=== PATIENT | male | born 1985 | race African-American/Black ===

== ENCOUNTER 2017-05-08 22:34 | Emergency (ER) | payer BC ==
[2017-05-08 22:45] VITALS: BP 136/66
--- NOTE | 2017-05-08 22:53 | EDM.PDOC ---
ED HPI GENERAL MEDICAL PROBLEM - General Chief Complaint: Upper Extremity Injury/Pain Stated Complaint: PAIN IN RIGHT HAND Time Seen by Provider: 05/08/17 22:39 Source of Information: Reports: Patient History Limitations: Reports: No Limitations - History of Present Illness INITIAL COMMENTS - FREE TEXT/NARRATIVE: This is a 32-year-old male. He is noted over the last several months he's been having some pain in his right hand in the palm and he has a small lesion there. 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 He apparently was here some months ago for this same reason was referred to a doctor to remove this bump which appears to be a wart. He was not able see that physician and went overseas for a few months and now he is back working in the oil field and is beginning to bother him more. He denies any other acute symptoms. Right Hand Pain Score (Numeric/FACES): 8 - Related Data Allergies Allergy/AdvReac Type Severity Reaction Status Date / Time No Known Allergies Allergy Verified 05/08/17 22:41 Home Meds: Home Meds . [No Known Home Meds] 05/08/17 [History] Past Medical History - Past Health History Medical/Surgical History: Denies Medical/Surgical History HEENT History: Reports: Impaired Vision Other HEENT History: glasses Respiratory History: Reports: Sleep Apnea Genitourinary History: Reports: STD Musculoskeletal History: Reports: Arthritis, Fracture - Past Surgical History HEENT Surgical History: Reports: Adenoidectomy, Tonsillectomy Social & Family History - Family History Family Medical History: Noncontributory - Tobacco Use Smoking Status *Q: Current Some Day Smoker Years of Tobacco use: 1 Packs/Tins Daily: 0.1 - Caffeine Use Caffeine Use: Reports: None - Alcohol Use Days Per Week of Alcohol Use: 2 Number of Drinks Per Day: 5 Total Drinks Per Week: 10 - Recreational Drug Use Recreational Drug Use: No Recreational Drug Type: Reports: Marijuana/Hashish Review of Systems - Review of Systems Review Of Systems: See Below Constitutional: Denies: Chills, Fever Eyes: Reports: No Symptoms Ears: Reports: No Symptoms Nose: Reports: No Symptoms, Previous Injury Mouth/Throat: Reports: No Symptoms Respiratory: Reports: No Symptoms Cardiovascular: Reports: No Symptoms GI/Abdominal: Reports: No Symptoms Genitourinary: Reports: No Symptoms Musculoskeletal: Reports: No Symptoms Skin: Reports: Other (As per history of present illness) Neurological: Reports: No Symptoms Psychiatric: Reports: No Symptoms ED EXAM, GENERAL - Physical Exam Exam: See Below Exam Limited By: No Limitations General Appearance: Alert, WD/WN, No Apparent Distress Eye Exam: Bilateral Eye: Normal Inspection Ears: Normal External Exam Nose: Normal Inspection Throat/Mouth: Normal Inspection Head: Normocephalic Neck: Supple Respiratory/Chest: No Respiratory Distress Back Exam: Full Range of Motion Extremities: Normal Inspection, Normal Range of Motion, Other (In the right hand palm over the distal fifth metacarpal there is a lesion there in the crease of this hand that appears to be a wart, there is no secondary infection there is no inflammation but there is a callous beginning in that area where the wart is) Neurological: Alert, Oriented Psychiatric: Normal Affect, Normal Mood Skin Exam: Warm, Dry Course - Vital Signs Last Recorded V/S: Last Vital Signs Temp 98.5 F 05/08/17 22:42 Pulse 78 05/08/17 22:42 Resp 18 05/08/17 22:42 BP 136/66 05/08/17 22:42 Pulse Ox 100 05/08/17 22:42 - Re-Assessments/Exams Free Text/Narrative Re-Assessment/Exam: 05/08/17 22:51 Refer the patient to [facility] physician for evaluation and removal of the wart. Departure - Departure Time of Disposition: 22:51 Disposition: Home, Self-Care 01 Condition: Good Clinical Impression: Wart Qualifiers: Viral wart type: unspecified viral wart Qualified Code(s): B07.9 - Viral wart, unspecified - Discharge Information Referrals: Jonh Lorenzo [Physician] - Forms: ED Department Discharge, ED Return to Work/School Form Additional Instructions: We will work make sure you're gloves have enough padding, follow-up with Dr. Lorenzo for evaluation of the wart and removal of the wart in your right palm, return to the ER if needed
== END 2017-05-08 23:07 | disposition home or self-care (01) ==
LOC: JD.ED 22:34
DX: B07.9 Viral wart, unspecified (principal); F17.210 Nicotine dependence, cigarettes, uncomplicated
CPT/HCPCS: 99282; 99283

== ENCOUNTER 2018-10-05 17:23 | Emergency (ER) | payer SELFPAY ==
[2018-10-05 17:33] VITALS: BP 133/67
--- NOTE | 2018-10-05 19:09 | EDM.PDOC ---
ED HPI GENERAL MEDICAL PROBLEM - General Chief Complaint: ENT Problem Stated Complaint: RIGHT EAR COMPLAINT Time Seen by Provider: 10/05/18 17:31 Source of Information: Reports: Patient History Limitations: Reports: No Limitations - History of Present Illness INITIAL COMMENTS - FREE TEXT/NARRATIVE: 33 yo M comes in for R ear "fullness" and difficulty hearing after flying in an airplane 5 days ago. He stated the problem started on the descent when his left ear popped and his right ear did not. He has never had anything like this before. He denies having any sick symptoms or congestion before the flight and denies any seasonal or environmental allergies. It has since been getting worse. He hasn't tried anything at home for relief. He also c/o hoarse voice x 8 months and "smoker's cough" (chronic). He also admits that he was snorting cocaine "intensely" x3 months and has had "nasal issues". He denies smoking tobacco, but does smoke marijuana 1-2x per day x4 months. No other significant past medical history. No other complaints at this time. He did not have his flu shot. No PCP. He is originally from [place]. - Related Data Allergies Allergy/AdvReac Type Severity Reaction Status Date / Time No Known Allergies Allergy Verified 04/23/18 12:08 Home Meds: Home Meds Indomethacin 50 mg PO BID PRN #20 capsule 04/23/18 [Rx] Amoxicillin/Potassium Clav [Augmentin 875-125 Tablet] 1 each PO BID 7 Days #14 tablet 10/05/18 [Rx] Colchicine [Mitigare] 0.6 mg PO BID PRN 10/05/18 [History] Loratadine/Pseudoephedrine [Claritin-D 12 Hour] 1 tab PO DAILY #20 tab.er [Rx] Past Medical History - Past Health History Medical/Surgical History: Denies Medical/Surgical History HEENT History: Reports: Impaired Vision Other HEENT History: glasses Respiratory History: Reports: Sleep Apnea Genitourinary History: Reports: STD Musculoskeletal History: Reports: Arthritis, Fracture, Gout - Past Surgical History HEENT Surgical History: Reports: Adenoidectomy, Tonsillectomy Social & Family History - Family History Family Medical History: Noncontributory - Tobacco Use Smoking Status *Q: Current Every Day Smoker Years of Tobacco use: 5 Packs/Tins Daily: 0.2 - Caffeine Use Caffeine Use: Reports: Soda - Recreational Drug Use Recreational Drug Use: Yes Drug Use in Last 12 Months: Yes Recreational Drug Type: Reports: Marijuana/Hashish Recreational Drug Use Frequency: Rarely ED ROS ENT - Review of Systems Review Of Systems: See Below Constitutional: Reports: No Symptoms. Denies: Fever, Chills HEENT: Reports: Throat Pain. Denies: Ear Discharge, Ear Pain Respiratory: Reports: Cough (chronic). Denies: Shortness of Breath Cardiovascular: Reports: No Symptoms. Denies: Chest Pain Endocrine: Reports: No Symptoms GI/Abdominal: Reports: No Symptoms. Denies: Abdominal Pain, Diarrhea, Nausea, Vomiting : Reports: No Symptoms Musculoskeletal: Reports: No Symptoms Skin: Reports: No Symptoms Neurological: Reports: No Symptoms. Denies: Dizziness, Headache Psychiatric: Reports: No Symptoms Hematologic/Lymphatic: Reports: No Symptoms Immunologic: Reports: No Symptoms ED EXAM, ENT - Physical Exam Exam: See Below Exam Limited By: No Limitations General Appearance: Alert, WD/WN, No Apparent Distress Eye Exam: Bilateral Eye: EOMI, Normal Inspection, PERRL Ears: Normal External Exam, TM Bulging (R ), TM Erythema (R), TM Fluid (R). No : Normal Canal (erythematous), Auricular Tenderness Nose: Normal Inspection, Normal Mucousa, No Blood Mouth/Throat: Normal Gums, Normal Lips, Normal Teeth, Pharyngeal Erythema, Throat Pain. No: Throat Swelling Head: Atraumatic, Normocephalic Neck: Normal Inspection, Supple, Non-Tender, Full Range of Motion Respiratory/Chest: No Respiratory Distress, Lungs Clear, Normal Breath Sounds, No Accessory Muscle Use, Chest Non-Tender Cardiovascular: Normal Peripheral Pulses, Regular Rate, Rhythm, No Edema, No Gallop, No JVD, No Murmur, No Rub Psychiatric: Normal Affect, Normal Mood Skin: Warm, Dry, Intact, Normal Color, No Rash Course - Vital Signs Last Recorded V/S: Last Vital Signs Temp 98.4 F 10/05/18 17:28 Pulse 59 L 10/05/18 17:28 Resp 13 10/05/18 17:28 BP 133/67 10/05/18 17:28 Pulse Ox 99 10/05/18 17:28 - Orders/Labs/Meds Orders: Active Orders 24 hr Category Date Time Status INFLUENZA A+B AG SCREEN [RM] Stat Lab 10/05/18 18:30 Ordered STREP PNEUMONIAE ANTIGEN [MREF] Routine Lab 10/05/18 18:30 Ordered - Re-Assessments/Exams Free Text/Narrative Re-Assessment/Exam: 10/05/18 18:30 Ordered flu and strep screen. 10/05/18 19:15 Flu and strep negative. At this time, he likely has congestion and right ear infection. Will send home with Augmentin 875-125 BID x5-7 days and recommend Claritin D 12h once daily. Departure - Departure Time of Disposition: 19:17 Disposition: Home, Self-Care 01 Condition: Good Clinical Impression: Otitis media - Discharge Information *PRESCRIPTION DRUG MONITORING PROGRAM REVIEWED*: Not Applicable *COPY OF PRESCRIPTION DRUG MONITORING REPORT IN PATIENT MARTÍN: Not Applicable Prescriptions: Amoxicillin/Potassium Clav [Augmentin 875-125 Tablet] 1 each PO BID 7 Days #14 tablet Loratadine/Pseudoephedrine [Claritin-D 12 Hour] 1 tab PO DAILY #20 tab.er Instructions: Otitis Media, Adult, [id number] Referrals: PCP,Not In Area [Primary Care Provider] - Additional Instructions: You were seen in the ED today for R ear fullness and decreased hearing. Your influenza and strep screen were negative. Your physical exam showed that you likely have a right ear infection. You will be prescribed Amoxicillin twice per day for 7 days for treatment. You likely also have congestion and would benefit from taking Claritin D once per day to help with decongestion. You also had complaints of hoarse voice for 8 months. You will need to follow up with an Ear , Nose, Throat (ENT) doctor for this problem. You can make an appointment with ENT Dr. Duque in [place] by calling . Also recommend you follow up with a primary care physician. Also recommend avoiding riding in airplanes until your ear has healed. Please return to ED if new or worsening symptoms. - My Orders Last 24 Hours: My Active Orders 10/05/18 18:30 INFLUENZA A+B AG SCREEN [RM] Stat STREP PNEUMONIAE ANTIGEN [MREF] Routine - Assessment/Plan Last 24 Hours: My Active Orders 10/05/18 18:30 INFLUENZA A+B AG SCREEN [RM] Stat STREP PNEUMONIAE ANTIGEN [MREF] Routine
== END 2018-10-05 19:32 | disposition home or self-care (01) ==
LOC: JD.ED 17:23
DX: H66.91 Otitis media, unspecified, right ear (principal); F17.210 Nicotine dependence, cigarettes, uncomplicated; Z79.899 Other long term (current) drug therapy
CPT/HCPCS: 87081; 87430; 87804; 99283

== ENCOUNTER 2019-07-19 11:54 | Emergency (ER) | payer SELFPAY ==
--- NOTE | 2019-07-19 12:21 | EDM.PDOC ---
<Maco Molina Tami - Last Filed: 07/19/19 12:46> ED HPI GENERAL MEDICAL PROBLEM - General Chief Complaint: Chest Pain Stated Complaint: CHEST PAIN AND SOB Time Seen by Provider: 07/19/19 12:02 Chest Pain Score (Numeric/FACES): 8 - Related Data Allergies Allergy/AdvReac Type Severity Reaction Status Date / Time No Known Allergies Allergy Verified 07/19/19 12:02 Home Meds: Home Meds Indomethacin 50 mg PO BID PRN #20 capsule 04/23/18 [Rx] Omeprazole 40 mg PO DAILY #30 capsule. 07/19/19 [Rx] Ranitidine HCl [Ranitidine] 150 mg PO DAILY 07/19/19 [History] Past Medical History - Past Health History Medical/Surgical History: Denies Medical/Surgical History HEENT History: Reports: Impaired Vision Other HEENT History: glasses Respiratory History: Reports: Sleep Apnea Genitourinary History: Reports: STD Musculoskeletal History: Reports: Arthritis, Fracture, Gout - Past Surgical History HEENT Surgical History: Reports: Adenoidectomy Social & Family History - Family History Family Medical History: Noncontributory - Tobacco Use Smoking Status *Q: Never Smoker - Caffeine Use Caffeine Use: Reports: None - Recreational Drug Use Recreational Drug Use: Yes Drug Use in Last 12 Months: Yes Recreational Drug Type: Reports: Marijuana/Hashish EKG INTERPRETATION EKG Date: 07/19/19 Rhythm: NSR [place]: Normal P-Wave: Present QRS: Normal ST-T: Normal QT: Normal Course - Vital Signs Last Recorded V/S: Last Vital Signs Temp 97.1 F 07/19/19 11:58 Pulse 71 07/19/19 11:58 Resp 22 H 07/19/19 11:58 BP 153/92 H 07/19/19 11:58 Pulse Ox 100 07/19/19 11:58 - Orders/Labs/Meds Orders: Active Orders 24 hr Category Date Time Status EKG Documentation Completion [RC] ASDIRECTED Care 07/19/19 12:30 Active EKG 12 Lead [EK] Stat Ther 07/19/19 12:00 Ordered - Re-Assessments/Exams Free Text/Narrative Re-Assessment/Exam: 07/19/19 12:20 Initial hx and exam was done by Becky Hameed PA student. I agree with her hx and exam as documented. I have also interviewed and examined patient. 07/19/19 12:46 07/19/19 12:46. Pt has hx of GERD and sx of GERD with intermitent esophogeal spasm, will start him on omeprazole 20 mg bid. EKG is nl. youth nutritional monitor normal sinus rhythm, no ectopy. Departure - Departure Time of Disposition: 12:48 Disposition: Home, Self-Care 01 Condition: Fair Clinical Impression: GERD (gastroesophageal reflux disease) Qualifiers: Esophagitis presence: without esophagitis Qualified Code(s): K21.9 - Gastro- esophageal reflux disease without esophagitis Prescriptions: Omeprazole 40 mg PO DAILY #30 capsule.dr Referrals: PCP,None [Primary Care Provider] - Forms: ED Department Discharge Additional Instructions: Avoid spicy foods or any other irritating foods for now. Omeprazole 40 mg once daily as discussed. Prescription has been sent electronically to [facility], [address]. You may also drink liquid antacid such as Maalox 2 tablespoons up to 3-4 times daily if needed for further discomfort or episodes of discomfort. Follow-up with your medical provider here in [place] in about 2 weeks for recheck. If symptoms continue or don't get better endoscopy, a way of looking at your stomach with a scope may be indicated. Sepsis Event Note - Evaluation Sepsis Screening Result: No Definite Risk - Focused Exam Vital Signs: Vital Signs Temp Pulse Resp BP Pulse Ox 07/19/19 11:58 97.1 F 71 22 H 153/92 H 100 Date Exam was Performed: 07/19/19 Time Exam was Performed: 12:46 <Dawna Liz - Last Filed: 07/19/19 13:24> ED HPI GENERAL MEDICAL PROBLEM - General Source of Information: Reports: Patient History Limitations: Reports: No Limitations - History of Present Illness INITIAL COMMENTS - FREE TEXT/NARRATIVE: 34-year-old male presents with intermittent chest pain for the past few months. He describes the pain as stabbing, like "fingers poking" him in multiple areas of his chest. He states that the pain jumps between multiple locations on his chest and upper abdomen. The pain seems to improve when he takes deep breaths, and occasionally worsens with food intake. He denies SOB, palpitations, headache , and dyspnea on exertion. He also denies changes to his stool and urination, vomiting, and nausea. The patient has a recent history of GERD for which he is being treated with ranitidine, stating he has tried his mother's greater strength ranitidine as well. 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 He does smoke marijuana daily. While on a recent vacation, he forgot his ranitidine and symptoms worsened. He has tried drinking baking soda for relief. The patient is currently in no acute distress. Duration: Intermittent Location: Reports: Chest Quality: Reports: Stabbing (alternates location throughout chest) Improves with: Reports: Other (deep breathing ) Worsens with: Reports: Eating (occasionally ) Associated Symptoms: Reports: Chest Pain. Denies: Cough, Diaphoresis, Fever/ Chills, Headaches, Loss of Appetite, Nausea/Vomiting, Syncope Past Medical History - Past Surgical History GI Surgical History: Reports: Hernia Repair/Other Social & Family History - Recreational Drug Use Recreational Drug Use Frequency: Daily ("one blunt daily") ED ROS GENERAL - Review of Systems Review Of Systems: See Below Constitutional: Reports: Weight Gain. Denies: Fever, Diaphoresis, Decreased Appetite HEENT: Reports: No Symptoms Respiratory: Reports: No Symptoms Cardiovascular: Reports: Chest Pain. Denies: Dyspnea on Exertion, Lightheadedness, Palpitations, Syncope Endocrine: Reports: No Symptoms GI/Abdominal: Reports: Other (acid reflux). Denies: Abdominal Pain, Constipation, Diarrhea, Decreased Appetite, Difficulty Swallowing, Nausea, Vomiting : Reports: No Symptoms Musculoskeletal: Reports: No Symptoms Skin: Reports: No Symptoms Neurological: Reports: No Symptoms Psychiatric: Reports: No Symptoms Hematologic/Lymphatic: Reports: No Symptoms Immunologic: Reports: No Symptoms ED EXAM, GENERAL - Physical Exam Exam: See Below Exam Limited By: No Limitations General Appearance: Alert, WD/WN, No Apparent Distress Throat/Mouth: Normal Inspection, Normal Oropharynx, Normal Voice, No Airway Compromise Head: Atraumatic, Normocephalic Neck: Normal Inspection, Supple, Non-Tender, Full Range of Motion Respiratory/Chest: No Respiratory Distress, Lungs Clear, Normal Breath Sounds, No Accessory Muscle Use, Chest Non-Tender Cardiovascular: Normal Peripheral Pulses, Regular Rate, Rhythm, No Murmur GI/Abdominal: Normal Bowel Sounds, Soft, No Organomegaly, No Distention, Tender (mild in RLQ). No: Guarding, Rigid Neurological: Alert, Oriented, Normal Cognition Psychiatric: Normal Affect, Normal Mood Skin Exam: Warm, Dry, Intact, Normal Color, No Rash Lymphatic: No Adenopathy Course - Orders/Labs/Meds Orders: Active Orders 24 hr Category Date Time Status EKG Documentation Completion [RC] ASDIRECTED Care 07/19/19 12:30 Active EKG 12 Lead [EK] Stat Ther 07/19/19 12:00 Ordered Sepsis Event Note - Focused Exam Date Exam was Performed: 07/19/19 Time Exam was Performed: 12:55
[2019-07-19 13:07] VITALS: BP 138/95; PULSE 69
== END 2019-07-19 13:02 | disposition home or self-care (01) ==
LOC: JD.ED 11:54
DX: K21.9 Gastro-esophageal reflux disease without esophagitis (principal); Z98.890 Other specified postprocedural states
CPT/HCPCS: 93005; 99284-25

== ENCOUNTER 2019-09-29 03:18 | Emergency (ER) | payer OTHER ==
[2019-09-29 03:33] VITALS: BP 126/82; PULSE 74
--- NOTE | 2019-09-29 03:45 | EDM.PDOC ---
ED HPI GENERAL MEDICAL PROBLEM - General Chief Complaint: Respiratory Problem Stated Complaint: SOB Time Seen by Provider: 09/29/19 03:34 - History of Present Illness INITIAL COMMENTS - FREE TEXT/NARRATIVE: 34-year-old male presents the emergency room with fever cough and generally not feeling well. This started about a week ago he has had fevers and chills. He has had a productive cough at times bringing up some blood-streaked sputum the sputum is otherwise mostly clear. He is achy all over. He said no nausea or vomiting or abdominal pain. Interestingly he has had right testicular pain that started last Wednesday, now present for a week. This testicular pain seems to come and go and is aggravated by change in position. He has noticed some swelling in this area. Patient denies any other complaints at this time - Related Data Allergies Allergy/AdvReac Type Severity Reaction Status Date / Time No Known Allergies Allergy Verified 09/29/19 03:33 Home Meds: Home Meds Indomethacin 50 mg PO BID PRN #20 capsule 04/23/18 [Rx] Omeprazole 40 mg PO DAILY #30 capsule. 07/19/19 [Rx] Ranitidine HCl [Ranitidine] 150 mg PO DAILY 07/19/19 [History] Doxycycline Hyclate 100 mg PO Q12H #13 capsule 09/29/19 [Rx] Past Medical History - Past Health History Medical/Surgical History: Denies Medical/Surgical History HEENT History: Reports: Impaired Vision Other HEENT History: glasses Respiratory History: Reports: Sleep Apnea Genitourinary History: Reports: STD Musculoskeletal History: Reports: Arthritis, Fracture, Gout - Past Surgical History HEENT Surgical History: Reports: Adenoidectomy Social & Family History - Family History Family Medical History: Noncontributory - Caffeine Use Caffeine Use: Reports: None ED ROS GENERAL - Review of Systems Review Of Systems: See Below Constitutional: Reports: Fever, Chills. Denies: No Symptoms HEENT: Reports: No Symptoms Respiratory: Reports: Shortness of Breath, Cough, Sputum Cardiovascular: Reports: No Symptoms GI/Abdominal: Reports: No Symptoms : Reports: Other (Right-sided testicular pain). Denies: No Symptoms, Discharge, Dysuria, Flank Pain, Frequency Musculoskeletal: Reports: Other (Achy all over at times) Skin: Reports: No Symptoms Neurological: Reports: No Symptoms ED EXAM, GENERAL - Physical Exam Exam: See Below Exam Limited By: No Limitations General Appearance: Alert, No Apparent Distress Eye Exam: Bilateral Eye: Normal Inspection Ears: Normal External Exam, Normal Canal, Hearing Grossly Normal, Normal TMs Nose: Normal Inspection, Normal Mucosa, No Blood Throat/Mouth: Normal Inspection, Normal Lips, Normal Oropharynx, Normal Voice, No Airway Compromise, Other (Very poor dentition). No: Normal Teeth Head: Atraumatic, Normocephalic Neck: Normal Inspection, Supple, Non-Tender, Full Range of Motion. No: Lymphadenopathy (L), Lymphadenopathy (R) Respiratory/Chest: No Respiratory Distress, Lungs Clear, Normal Breath Sounds Cardiovascular: Regular Rate, Rhythm, No Edema, No Murmur GI/Abdominal: Normal Bowel Sounds, Soft, Non-Tender (Male) Exam: Scrotum Tenderness (R), Testicular Tenderness (R) (He has some swelling and here this is most consistent with a hydrocele). No: Scrotum Tenderness (L), Urethral Discharge Back Exam: Normal Inspection. No: CVA Tenderness (L), CVA Tenderness (R) Extremities: Normal Inspection, No Pedal Edema Neurological: Alert, Oriented, Normal Cognition Course - Vital Signs Last Recorded V/S: Last Vital Signs Temp 36.7 C 09/29/19 03:28 Pulse 74 09/29/19 03:28 Resp 20 09/29/19 03:28 BP 126/82 09/29/19 03:28 Pulse Ox 95 09/29/19 03:28 - Orders/Labs/Meds Orders: Active Orders 24 hr Category Date Time Status Chest 1V Frontal [CR] Stat Exams 09/29/19 03:52 Taken CORONAVIRUS COVID-19 PCR PHL [MREF] Stat Lab 09/29/19 04:15 Received Meds: Medications Discontinued Medications Generic Name Dose Route Start Last Admin Trade Name Freq PRN Reason Stop Dose Admin Doxycycline Hyclate 100 mg 09/29/19 05:03 Vibramycin PO 09/29/19 05:04 ONETIME ONE - Re-Assessments/Exams Free Text/Narrative Re-Assessment/Exam: 09/29/19 05:06 Chest x-ray was consistent with bilateral pneumonia is got patchy infiltrates mostly in the bases right upper lobe area noted as well. This could well be viral. Coronavirus testing pending. Patient be started on doxycycline 100 mg twice daily this first dose was given here in the emergency room. Had a long discussion about his testicular pain I believe this is a hydrocele in the highly unlikely event that is torsion this far out the testicle is gone anyway patient understands he needs to follow-up very closely with us to make sure it does get better. He will use tight fitting underwear probably should avoid nonsteroidals at this point as he may have covid 19. Departure - Departure Time of Disposition: 05:10 Disposition: Home, Self-Care 01 Clinical Impression: Hydrocele of testis, Viral syndrome, Pneumonia - Discharge Information Prescriptions: Doxycycline Hyclate 100 mg PO Q12H #13 capsule Referrals: PCP,None [Primary Care Provider] - Forms: ED Department Discharge Additional Instructions: Return to the emergency room with any questions problems or worsening symptoms. Establish with a local provider and follow-up after you are feeling better probably in a week or so. Have this testicular discomfort followed up on. Take the antibiotics as directed. Your first dose was given here in the emergency room take the next dose this evening. Tylenol as needed for discomfort. Sepsis Event Note - Evaluation Sepsis Screening Result: No Definite Risk - Focused Exam Vital Signs: Vital Signs Temp Pulse Resp BP Pulse Ox 09/29/19 03:28 36.7 C 74 20 126/82 95 Date Exam was Performed: 09/29/19 Time Exam was Performed: 05:05 - My Orders Last 24 Hours: My Active Orders 09/29/19 03:52 Chest 1V Frontal [CR] Stat 09/29/19 04:15 CORONAVIRUS COVID-19 PCR PHL [MREF] Stat - Assessment/Plan Last 24 Hours: My Active Orders 09/29/19 03:52 Chest 1V Frontal [CR] Stat 09/29/19 04:15 CORONAVIRUS COVID-19 PCR PHL [MREF] Stat
[2019-09-29] MEDS ORDERED: Doxycycline 100 MG Cap PO ONE (05:03)
--- NOTE | 2019-09-29 06:59 | CR ---
Chest: Portable view of the chest was obtained. Comparison: No previous chest imaging is available. Findings: Patchy areas of increased density seen on both sides of the chest. Findings most likely represent mild multifocal pneumonia. Lungs otherwise are clear. Heart size and mediastinum are normal. Bony structures are unremarkable. Impression: 1. Patchy areas of increased density within both sides of the chest suggesting the possible mild multifocal pneumonia. Diagnostic code #3 This report was dictated in MDT I agree with preliminary report from [facility], finalized on 09/29/19, 5:33 AM Central Time
== END 2019-09-29 05:30 | disposition home or self-care (01) ==
LOC: JD.ED 03:18
DX: B97.29 Other coronavirus as the cause of diseases classified elsewhere (principal); J18.9 Pneumonia, unspecified organism; N43.3 Hydrocele, unspecified; H54.7 Unspecified visual loss; G47.30 Sleep apnea, unspecified; M19.90 Unspecified osteoarthritis, unspecified site; M10.9 Gout, unspecified; Z79.899 Other long term (current) drug therapy
CPT/HCPCS: 71045; 87635; 99284; A9270; 99283; U0001; U0002

== ENCOUNTER 2020-01-21 11:26 | Emergency (ER) | payer OTHER ==
[2020-01-21 11:39] VITALS: BP 150/91; PULSE 58
--- NOTE | 2020-01-21 11:59 | EDM.PDOC ---
ED HPI GENERAL MEDICAL PROBLEM - General Chief Complaint: Lower Extremity Injury/Pain Stated Complaint: GOUT FLARE ON LEFT TOE Time Seen by Provider: 01/21/20 11:45 Source of Information: Reports: Patient History Limitations: Reports: No Limitations - History of Present Illness INITIAL COMMENTS - FREE TEXT/NARRATIVE: 34-year-old male presents to the ED with painful swollen left first MCP joint. Patient states he has had gout many times in both MCP joints of his feet and occasionally in his knees. He believes he is on allopurinol 100 mg a day but feels it is not strong enough as he continues to have breakthrough gout attacks in spite of being on on allopurinol. Current attack started about 3 days ago with mild pain. He had some indomethacin which brought it mildly under control but he ran out of the medication. It really flared up overnight to the point that he could barely walk this morning and certainly cannot put a shoe on. Not had his uric acid tested in his blood recently. Onset: Gradual Onset Date: 01/19/20 Duration: Day(s):, Getting Worse Location: Reports: Lower Extremity, Left Quality: Reports: Ache (Left great toe first MCP joint.), Burning, Sharp, Stabbing Severity: Severe Improves with: Reports: Rest Worsens with: Reports: Other Context: Reports: Other (Spontaneous occurrence. He indicates that he did eat seafood at [employer] about 3 days ago.). Denies: Activity, Exercise (Any attempt to walk or touching the toe causes marked increase in pain.), Lifting, Sick Contact, Trauma Associated Symptoms: Reports: No Other Symptoms Treatments DIE MOUNTER: Reports: Other (see below) (Indomethacin tablets that he had leftover from last gout attack.) - Related Data Allergies Allergy/AdvReac Type Severity Reaction Status Date / Time No Known Allergies Allergy Verified 09/29/19 03:33 Home Meds: Home Meds Omeprazole 40 mg PO DAILY #30 capsule. 07/19/19 [Rx] Indomethacin 50 mg PO Q6H #20 capsule 01/21/20 [Rx] oxyCODONE HCl/Acetaminophen [Percocet 5-325 mg Tablet] 1 - 2 each PO Q4H PRN #12 tablet 01/21/20 [Rx] predniSONE [Prednisone] 20 mg PO BID #12 tablet 01/21/20 [Rx] Past Medical History - Past Health History Medical/Surgical History: Denies Medical/Surgical History HEENT History: Reports: Impaired Vision Other HEENT History: glasses Respiratory History: Reports: Sleep Apnea Gastrointestinal History: Reports: GERD (Omeprazole daily.) Genitourinary History: Reports: STD Musculoskeletal History: Reports: Arthritis, Fracture, Gout - Past Surgical History HEENT Surgical History: Reports: Adenoidectomy GI Surgical History: Reports: Hernia Repair/Other Social & Family History - Family History Family Medical History: Noncontributory - Tobacco Use Smoking Status *Q: Never Smoker - Caffeine Use Caffeine Use: Reports: None - Living Situation & Occupation Living situation: Reports: Single Occupation: Unemployed Review of Systems - Review of Systems Review Of Systems: See Below Constitutional: Reports: No Symptoms Eyes: Reports: No Symptoms Ears: Reports: No Symptoms Nose: Reports: No Symptoms Mouth/Throat: Reports: No Symptoms Respiratory: Reports: No Symptoms Cardiovascular: Reports: No Symptoms GI/Abdominal: Reports: No Symptoms Genitourinary: Reports: No Symptoms Musculoskeletal: Reports: Other Skin: Reports: No Symptoms (Tremendous pain in the left foot first MCP joint.) Neurological: Reports: No Symptoms Psychiatric: Reports: No Symptoms ED EXAM, GENERAL - Physical Exam Exam: See Below Exam Limited By: No Limitations General Appearance: Alert, WD/WN, Mild Distress, Other (Temperature is 36.2. Heart rate is 58 and sinus. Respiratory to 16 with O2 sats of 98% on room air. BP mildly elevated 150/91.) Eye Exam: Bilateral Eye: Normal Inspection, PERRL Extremities: Other (Examination of his left foot in particular the first MCP joint reveals it to be markedly swollen and very tender to palpation. It is warm to touch not markedly erythematous. Examination is compatible with acute gout attack.) Neurological: Alert, Oriented, CN II-XII Intact, Normal Cognition. No: Normal Gait (Emptying gait.) Course - Vital Signs Last Recorded V/S: Last Vital Signs Temp 36.2 C 01/21/20 11:36 Pulse 58 L 01/21/20 11:36 Resp 16 01/21/20 11:36 BP 150/91 H 01/21/20 11:36 Pulse Ox 98 01/21/20 11:36 - Radiology Interpretation Free Text/Narrative:: 34-year-old male presents to the ED with an acute gout attack involving the first MCP joint of his left great toe. Patient states he has had gout many times in the past involving both great toes and in his knees. He is currently on allopurinol he believes the dose is 100 mg a day and believes that in spite of taking this medication daily his still getting frequent gout attacks. Plan he will be treated with prednisone 20 mg twice daily for the next 5 days. Indomethacin 50 mg every 6 hours as needed for the next 5 days to relieve pain and inflammation. Percocet tabs 5/325 mg 1 or 2 every 4-6 hours needed for pain relief x12 tablets provided. I increased his allopurinol to 300 mg daily which he is not to start until the gout attack is completely resolved for 2 days. He is advised to follow-up with his 5 primary care provider a month after starting the allopurinol to check on renal function and his uric acid levels. He can still get a few gout attacks over the next 6 months even in spite of the increased dose of allopurinol dosage. Some patients will require up to 600 mg of allopurinol daily to achieve a uric acid less than 6. Is advisable to prevent interstitial nephritis due to uric acid crystal deposition. Departure - Departure Time of Disposition: 11:51 Disposition: Home, Self-Care 01 Condition: Fair Clinical Impression: Gout attack Qualifiers: Gout site: toe Gout etiology: idiopathic Laterality: left Qualified Code(s): M10.072 - Idiopathic gout, left ankle and foot - Discharge Information *PRESCRIPTION DRUG MONITORING PROGRAM REVIEWED*: Not Applicable *COPY OF PRESCRIPTION DRUG MONITORING REPORT IN PATIENT MARTÍN: Not Applicable Prescriptions: Indomethacin 50 mg PO Q6H #20 capsule oxyCODONE HCl/Acetaminophen [Percocet 5-325 mg Tablet] 1 - 2 each PO Q4H PRN #12 tablet PRN Reason: pain relief. 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 As you indicate you have had this on multiple occasions in the past. In spite of being on allopurinol you are still continued to have breakthrough gout attacks. This suggest that your allopurinol dose is not high enough to control the amount of uric acid being formed in your body. Treatment today will be prednisone 20 mg twice daily for the next 6 days with indomethacin 50 mg every 6 hours with food for the next 5 days to reduce pain and inflammation and reduce the gout attack. May also use Percocet tabs 5/325 mg 1 or 2 every 4-6 hours for pain relief for the next day or 2 till the anti- inflammatories become effective. He should not operate a motor vehicle if you are taking the narcotic pain medication. I have written a prescription for allopurinol 300 mg once daily and you should start taking this in about 10 days time when your current gout attack is completely pain-free or gone. Check with your family physician or personal care physician in a month's time to check on kidney function from the increased dose of allopurinol. Some patients will require as much is 600 mg of allopurinol daily to control uric acid levels. The uric acid can be measured in your bloodstream and the effect of the medication can therefore be directed at lowering your uric acid level to under 6. Sepsis Event Note (ED) - Evaluation Sepsis Screening Result: No Definite Risk - Focused Exam Vital Signs: Vital Signs Temp Pulse Resp BP Pulse Ox 01/21/20 11:36 36.2 C 58 L 16 150/91 H 98
== END 2020-01-21 12:08 | disposition home or self-care (01) ==
LOC: JD.ED 11:26
DX: M10.072 Idiopathic gout, left ankle and foot (principal); K21.9 Gastro-esophageal reflux disease without esophagitis; Z79.899 Other long term (current) drug therapy
CPT/HCPCS: 99283